=== PATIENT | male | born 1960 | race Caucasian/White ===

== ENCOUNTER → 2019-02-04 14:14 | Outpatient (CLI) | payer OTHER, SELFPAY ==
--- NOTE | 2019-02-04 14:26 | CT_ITS ---
STUDY: CT MAXILLOFACIAL SINUSES REASON FOR EXAM: Male, 58 years old. Sinusitis x months, left side worse. No prior surgery. [facility] navigation protocol. RADIATION DOSAGE (If Supplied By Facility): CTDIvol = ( 34.45 ) mGy, DLP = ( 904.62 ) mGycm TECHNIQUE: The patient was scanned in a multi detector CT scanner. High resolution axial imaging was performed without the administration of intravenous contrast material. Sagittal and coronal images were reconstructed. Individualized dose optimization techniques were used for this CT. COMPARISON: None. FINDINGS: FRONTAL SINUSES: The middle frontal sinus is completely filled with mucus material. The right frontal sinus is 80% filled with mucus material. The left frontal sinus is clear. ETHMOIDAL SINUSES: Most of the anterior and posterior ethmoid air cells are completely filled with mucus material although several middle air cells are clear. MAXILLARY SINUSES: The left maxillary sinus is nearly completely filled with mucus material resulting in obstruction of the ostiomeatal complex. The right maxillary sinus is 50% filled with mucus material, and the ostiomeatal complex is also occluded with mucus material. SPHENOIDAL SINUSES: The right sphenoid sinus is 50% filled with mucus material. The left sphenoid sinus is clear. There is diffuse lobularity/polypoid appearance of the bilateral nasal turbinates with minimal enlargement. Normal midline nasal septum. The bilateral nasal airways are nearly obstructed. There is mucoperiosteal reaction and thinning of the bony structures of the paranasal sinuses. The bilateral mastoid air cells are clear. The visualized osseous structures are normal. The visualized bilateral orbital contents are normal. CT/Sinus/Facial Bone IMPRESSION: 1. Multifocal paranasal sinusitis that is moderate to severe. Electronically Signed: Donnie Narayan MD at 19:08 EST , Service support ,
== END ==
PROVIDERS: Family Provider Family Medicine; PCP Family Medicine; Referring Provider Otolaryngology; Visit Provider Otolaryngology
DX: J32.2 Chronic ethmoidal sinusitis (principal)
CPT/HCPCS: 70486

== ENCOUNTER 2019-03-04 08:54 | Day surgery (SDC) | payer OTHER, SELFPAY ==
--- NOTE | 2019-03-04 09:05 | EKG12_ITS ---
Test Reason : PRE OP Blood Pressure : / mmHG Vent. Rate : 064 BPM Atrial Rate : 064 BPM P-R Int : 156 ms QRS Dur : 090 ms QT Int : 378 ms P-R-T Axes : 050 -06 043 degrees QTc Int : 389 ms Normal sinus rhythm Normal ECG Confirmed by FADUMO BRIAN, DAYANNA ([id number]), clinical editor DARREN BAKER ([id number]) on 03/09/2019 11:16:15 AM Referred By: Deniz Warner Confirmed By:DAYANNA THORNE MD
[2019-03-04 09:45] VITALS: BP 150/91; PULSE 79; RESP 18; TEMP 36.9; O2SAT 98; BMI 34.5
[2019-03-04] MEDS: Lactated Ringers 1,000 ML 100 ML IV (09:57)
--- NOTE | 2019-03-04 10:40 | ETH_PTH ---
PATIENT: PERLA GLEZ LOC: [facility] [place] U#:[id number] AGE/SX: 58/M ROOM: RE03/04/[address]: Dr. Deniz Warner MD : 1960 BED: DIS: 03/04/2019 SPEC #: [id number] RECD: 03/04/19 14:19 STATUS: SAI KIMO #: [id number] ABI: 03/04/19 10:[address]: Deniz Warner DEPT: SURGICAL PATHOLOGY RECD BY: Mariella Lanza ENTERED: 03/04/19 15:04 SP TYPE: ETH TISS OTHR DR: Dr. Adilson Cisse MD Tissues: A - Ethmoid sinus, NOS B - Ethmoid sinus, NOS Procedures: Surgery Specimen Level IV HEADER OPERATION: Endoscopy nasal/sinus with frontal sinus exploration PRE-OP DIAGNOSIS: Nasal polyps, chronic maxillary, ethmoid, frontal and sphenoid sinusitis TISSUE SUBMITTED: A - Left sinus contents, B - Right sinus contents MICROSCOPIC DIAGNOSIS A. Left sinus contents: Fragments of respiratory mucosa with chronic inflammation and bone. Fragments of benign mucosal polyp. B. Right sinus contents: Fragments of respiratory mucosa with chronic inflammation. Fragments of benign mucosal polyp. SJ:carolyn 03/07/19 MICROSCOPIC DESCRIPTION Slides are reviewed. GROSS DESCRIPTION A - Received in fixative is one container labeled with the patient's name and designated left sinus contents. The specimen consists of multiple irregular and glistening fragments of pink-lawrence mucosa with adherent minute fragments of bone that in aggregate measure 6 x 4.5 x 2 cm. Lead Quality Control Technician portions are submitted in two cassettes. B - Received in fixative is one container labeled with the patient's name and designated right sinus contents. The specimen consists of multiple irregular and glistening fragments of pink-lawrence mucosa with adherent minute fragments of bone that in aggregate measure 6 x 4.5 x 2 cm. Lead Quality Control Technician portions are submitted in two cassettes. / AM:carolyn 03/04/19 TC:5 CPT: 29325 x2
[2019-03-04] MEDS: Lidocaine 4% 50 ML Bottle (12:08)
[2019-03-04] MEDS: Oxymetazoline 0.05% 1 SPRAY SPRAY.BTL 15 SPRAY (12:08)
--- NOTE | 2019-03-04 13:27 | PCM.OPRPT ---
Problem List (1) Chronic maxillary sinusitis Status: Chronic (2) Chronic frontal sinusitis Status: Chronic (3) Chronic ethmoidal sinusitis Status: Chronic (4) Chronic sphenoidal sinusitis Status: Chronic Report of Operation Date of Procedure: 03/04/19 Pre-Operative Diagnosis: Chronic sinusitis, polyposis Post-Operative Diagnosis: Same Surgery/Procedure Performed:: Bilateral endoscopic maxillary antrostomies with tissue removal, total ethmoidetomies, sphenoidotomies, and frontal sinus exploration Description of Surgical Findings:: Rich is a 58-year-old male presents evaluation of chronic nasal obstruction with exam showing bilateral obstructing polyps and CT scan confirming diffuse pain polypoid sinusitis. He was counseled regarding the above procedure in hopes alleviation of his obstruction complaints and treatment of his sinus disease and was agreeable to proceed. The risks, alternatives, potential complications, and benefits were discussed at length and any questions answered to the patient and/or caregiver's satisfaction. Witnessed informed consent was obtained in the office, and the patient and/or caregiver was agreeable to proceed. Procedure went as follows: The patient was identified in the preoperative holding and brought to the operating room, was placed under general anesthesia and intubated. When appropriate anesthesia was obtained, the navigational head gear was placed and confirmed to be operational in accordance with the marketing reporting analyst's directions. Pledgets soaked in a 50-50 mixture of oxymetazoline and 4% topical lidocaine were placed to decongest the nasal mucosa. These were then removed and beginning on the left side using a 0? endoscope the nasal cavity examined. The insertion of the middle turbinate and uncinate process was then injected with 1% lidocaine with 100,000 epinephrine for a total of 2 mL, and a similar injection was then carried on the contralateral side. Upon returning to the left side, there was noted to be extensive polyps completely obstructing the visualization and these were removed with the microdebrider. The middle turbinate was medialized with a Cedar elevator. This allowed examination of the maxillary sinus ostia which was then probed with a double ball seeker. The uncinate process was then outfractured with a J curette and transected with a backbiting forceps. This was then removed with the microdebrider creating a wide maxillary antrostomy. Extensive polyposis radiating through the ostia was noted and these were then removed clearing the maxillary sinus of the anterior polyps. The ethmoid bulla was then entered and a total ethmoidectomy was then carried out working posteriorly to anterior. Any polyps, scar, and mucous secretions were removed. The sphenoid sinus ostium was then identified and opened widely with any polyps, secretions, or other debris removed. The frontal sinus ostia was then explored and any obstructing bone, polyps, or debris removed. Pledgets soaked in oxymetazoline were then placed for hemostasis and attention turned to the contralateral side. Similar procedure and findings were then carried out. Again there is no to be extensive polyposis extending from the maxillary sinus and completely obliterating the ethmoid sinuses. Floseal hemostatic agent was then applied. An NG tube was then placed to decompress the stomach and the patient returned to anesthesia, revived and extubated having tolerated the procedure well. Type of Anesthesia:: General Anesthesiologist: Deniz Avila Special Medications: none Specimen's removed: sinus contents, maxillary sinus polyps Drains: none Estimated Blood Loss (mL): 500 mL Fluids Replaced: 1100 mL Grafts/Implants Used: none - Complications none - Admit VTE Documentation VTE Present on Admission: No VTE Mechan Device Prophylaxis: SCD's VTE Pharm Prophylaxis ordered?: No
--- NOTE | 2019-03-04 13:33 | DCINST_ITS ---
- Discharge Diagnoses Current Active Problems: Current Active and Chronic Problems (Last Updated 12/21/17 @ 10:03 by Brielle Cuadra) Chronic maxillary sinusitis (Chronic) Chronic frontal sinusitis (Chronic) Chronic ethmoidal sinusitis (Chronic) Chronic sphenoidal sinusitis (Chronic) You will use the following diet at home:: No restrictions Discharge Activity: Return to Normal Activity Call your doctor if your incision/area has: Continuous Slow Oozing, Sudden Inc reased Bleeding Call your doctor if you observe: Fever of 101 or Higher, Uncontrolled pain Allergies/Adverse Reactions: Allergies No Known Allergies Allergy (Unverified 03/04/19 09:44) Medications to take at Discharge albuterol sulfate 90 mcg/actuation aerosol inhaler 2 puff INHALATION PRN PRN 75 Days #26 g 12/21/17 montelukast 10 mg tablet 10 mg PO QPM 12/21/17 Fluticasone/Salmeterol [Advair 250-50 Diskus] 1 ea IH BID 03/01/19 Primary Care Physician: Adilson Cisse MD [Primary Care Provider] - Test Results: Test results from this visit will be discussed in further detail at your follow- up appointment, if applicable. Please Follow Up With: Deniz Warner MD When: 2 weeks
[2019-03-04 13:36] VITALS: BP 150/91; BP 152/90; PULSE 78; RESP 18; TEMP 36.4; O2SAT 98
[2019-03-04 13:45] VITALS: BP 140/89; BP 150/91; PULSE 65; RESP 18; O2SAT 97
[2019-03-04 14:00] VITALS: BP 145/89; BP 150/91; PULSE 86; RESP 18; O2SAT 98
[2019-03-04 14:05] VITALS: BP 132/92; BP 150/91; PULSE 81; RESP 18; TEMP 36.6; O2SAT 94
[2019-03-04 15:47] VITALS: BP 139/79; BP 150/91; PULSE 84; RESP 16; TEMP 36.6; O2SAT 95
== END 2019-03-04 15:51 | disposition home or self-care (01) ==
LOC: SDC 09:01 → AC 09:04
PROVIDERS: Family Provider Family Medicine; PCP Family Medicine; Referring Provider Otolaryngology; Visit Provider Otolaryngology
PROC: (CPT 31267; principal; 2019-03-04 10:10)
DX: J33.0 Polyp of nasal cavity (principal); J32.0 Chronic maxillary sinusitis; J32.1 Chronic frontal sinusitis; J32.2 Chronic ethmoidal sinusitis; J32.3 Chronic sphenoidal sinusitis; Z72.0 Tobacco use
CPT/HCPCS: 00160; 31267; 88305; 93005; J7120; J2405